=== PATIENT | male | born 1995 | race Caucasian/White ===

== ENCOUNTER 2020-02-04 07:21 | Emergency (ER) | payer OTHER ==
[~2020-02-04] VITALS: Ht 180.3 cm; Wt 122.6 kg
[2020-02-04 07:22] VITALS: BP 154/87
[2020-02-04] MEDS ORDERED: LIDOCAINE-MPF 1%, 5ML ONE (07:42)
[2020-02-04] MEDS ORDERED: DIPH,PERTUSS(ACELL),TET VAC/PF 0.5 ML IM-VACC ONE ×2 (08:00→09:12)
[2020-02-04] MEDS ORDERED: MICROFIBRILLAR COLLAGEN 0.5GM/PACK TP ONE (08:00)
[2020-02-04] MEDS ORDERED: LIDOCAINE-MPF 1%, 5ML INFIL ONE (08:00)
[2020-02-04] MEDS ORDERED: CEPHALEXIN 500 MG CAPSULE PO SCH (08:30)
[2020-02-04] MEDS ORDERED: NEOSPORIN OINT. PKT 1 PACKET ONE (08:49)
[2020-02-04] MEDS ORDERED: KETOROLAC 30 MG/1 ML IM ONE (09:00)
[2020-02-04] MEDS ORDERED: KETOROLAC 30 MG/1 ML ONE (09:12)
[2020-02-04] MEDS ORDERED: CEPHALEXIN 500 MG CAPSULE ONE (09:12)
--- NOTE | 2020-02-04 10:33 | NUR ---
Patient given discharge instructions and they have confirmed that they understand the instructions. Patient ambulatory with steady gait.
== END 2020-02-04 10:34 | disposition home or self-care (01) ==
LOC: ED 08:37
DX: S62.660B Nondisplaced fracture of distal phalanx of right index finger, initial encounter for open fracture (principal); X58.XXXA Exposure to other specified factors, initial encounter; Y93.89 Activity, other specified; Y92.69 Other specified industrial and construction area as the place of occurrence of the external cause; Y99.0 Civilian activity done for income or pay
CPT/HCPCS: 64450; 90471; 90715; 99284

== ENCOUNTER 2020-02-06 09:15 | Emergency (ER) | payer OTHER ==
[~2020-02-06] VITALS: Ht 180.3 cm; Wt 119.7 kg
--- NOTE | 2020-02-06 09:30 | NUR ---
PATIENT ARRIVES TO ER FOR A RECHECK OF RIGHT INDEX FINGER. HE CAME HERE FRIDAY FOR A LACERATION THAT WAS CLEANED AND WRAPPED, THEN REFERED TO GO TO HAND SURGEON. HE TRIED TO CALL HAND SURGEON BUT ITS WEEKEND AND CANT MAKE APPT. IT CONTINUES TO BLEED.
[2020-02-06] MEDS ORDERED: LIDOCAINE-MPF 1%, 5ML ONE (10:11)
--- NOTE | 2020-02-06 10:15 | NUR ---
soaked finger. removed most of xeroform and curlex but the last bit at the tip causing him a LOT of pain/distress. Got PA and patient not getting numbed.
[2020-02-06] MEDS ORDERED: LIDOCAINE-MPF 1%, 5ML INFIL ONE (10:30)
--- NOTE | 2020-02-06 10:41 | NUR ---
redressing wound, then will let patient go home. dressing with adaptic/bacitracin/kerlex and tape.
[2020-02-06 10:42] VITALS: BP 130/78
== END 2020-02-06 11:06 | disposition home or self-care (01) ==
LOC: ED 10:08
DX: S61.210A Laceration without foreign body of right index finger without damage to nail, initial encounter (principal); Z48.00 Encounter for change or removal of nonsurgical wound dressing; F17.200 Nicotine dependence, unspecified, uncomplicated; X58.XXXA Exposure to other specified factors, initial encounter; Y93.89 Activity, other specified; Y92.89 Other specified places as the place of occurrence of the external cause; Y99.0 Civilian activity done for income or pay
CPT/HCPCS: 99281